=== PATIENT | female | born 1935 | race African-American/Black ===

== ENCOUNTER 2018-11-24 23:48 | Emergency (ER) | payer OTHER ==
[~2018-11-24] VITALS: Ht 154.9 cm; Wt 53.1 kg
[~2018-11-24 23:48] MED LIST: AGGRENOX CAPSU1 EACH PO; ALDACTONE25 MG PO; ARICEPT10 M1 PO; CRESTOR40 MG PO; DIOVAN160 MG PO; LIPITOR80 MG PO; NAMENDA 10 MG T10 MG PO; PLAVIX 75 MG TA75 M1
[2018-11-25 02:09] LABS: URINE BILIRUBIN NEGATIVE (Negative); URINE BLOOD NEGATIVE (Negative); URINE CLARITY CLEAR; URINE COLOR YELLOW; URINE GLUCOSE-RANDOM* NEGATIVE (Negative); URINE KETONES NEGATIVE (Negative); URINE LEUKOCYTES-REFLEX NEGATIVE (Negative); URINE NITRITE-REFLEX NEGATIVE (Negative); URINE PROTEIN (DIPSTICK) NEGATIVE (Negative)
[2018-11-25 02:50] LABS: ABSOLUTE NEUTROPHILS 2.5 thou/uL (1.4-8.2); BASOPHILS 0.9 % (0.0-2.0); EOSINOPHILS 3.4 % (0.0-3.0); HEMATOCRIT 32.3 % (37.0-47.0); HEMOGLOBIN 10.6 gm/dL (12.0-15.0); LYMPHOCYTES 39.4 % (24.0-44.0); MCH 29.4 pg (26.0-34.0); MCHC 32.7 g/dL (28.0-37.0); MCV 89.7 fL (80.0-100.0); MONOCYTES 11.6 % (1.0-8.0); PLATELET COUNT 266 thou/uL (150-400); POLYS 44.7 % (36.0-66.0); RDW 15.8 % (10.5-14.5); WBC 5.5 thou/uL (4.0-11.0)
[2018-11-25 02:59] LABS: CALCIUM 9.3 mg/dL (8.5-10.1); CREATININE 1.2 mg/dL (0.6-1.0); POTASSIUM 4.1 mmol/L (3.5-5.1)
[2018-11-25 04:51] VITALS: BP 142/63
--- NOTE | 2018-11-25 07:43 | EKG ---
[place] [id number] [facility] [place] [address] ELECTROCARDIOGRAM REPORT Name: MARIELLE ROY Room #: [id number] ������������������ Admission: 11/24/18 ������������������ Attend Phys: Discharge: 11/25/18 ������������������ Date of : 31 Report #: [id number] ����������������������������������������������������������������� [id number] THIS REPORT FOR: //name// [facility] ED Test Date: 2018-11-25 Test Time: 02:13:05 Pat Name: MARIELLE ROY Department: Room: Gender: F [employer]ical [employer]: GOMEZ : 1935 Requested By: Ba Gaol Order Number: [id number] MD: Kaushal Rogers Measurements Intervals [place] Rate: 66 P: 59 MN: 185 QRS: -21 QRSD: 104 T: 103 QT: 446 QTc: 468 Interpretive Statements Sinus rhythm Borderline left axis deviation Anterolateral infarct, age indeterminate Compared to ECG 09/29/2014 10:03:00 No significant changes Electronically Signed On 11-25-2018 7:43:40 CDT by Kaushal Rogers [email or web address] ��������������������������������������������� <ELECTRONICALLY SIGNED> ���������������������������������������� By: Kaushal Rogers MD, [facility] ��������������������������������������������� 11/25/18 0743 2 2 Kaushal Rogers MD, [facility] /EPI
== END 2018-11-25 04:53 | disposition home or self-care (01) ==
LOC: ER 23:48
PROVIDERS: Emergency Medicine
DX: F03.90 Unspecified dementia, unspecified severity, without behavioral disturbance, psychotic disturbance, mood disturbance, and anxiety (principal); R53.83 Other fatigue; Z86.73 Personal history of transient ischemic attack (TIA), and cerebral infarction without residual deficits